=== PATIENT | male | born 1930 | race Caucasian/White ===

== ENCOUNTER → 2016-06-24 | Day surgery (SDC) | payer MEDICARE, BC | END | disposition home or self-care (01) | LOC: SDC 06:01 | DX: C67.2 Malignant neoplasm of lateral wall of bladder (principal); N40.0 Benign prostatic hyperplasia without lower urinary tract symptoms; R31.9 Hematuria, unspecified; N35.9 Urethral stricture, unspecified; N32.3 Diverticulum of bladder; N32.89 Other specified disorders of bladder; N21.0 Calculus in bladder; I10 Essential (primary) hypertension; E11.9 Type 2 diabetes mellitus without complications; Z79.4 Long term (current) use of insulin; Z79.899 Other long term (current) drug therapy; Z88.8 Allergy status to other drugs, medicaments and biological substances; M19.90 Unspecified osteoarthritis, unspecified site | CPT/HCPCS: 84153; J2704; J9280; Q9967 ==

== ENCOUNTER → 2016-07-29 | Day surgery (SDC) | payer MEDICARE, BC | END | disposition home or self-care (01) | LOC: SDC 09:59 | DX: C67.9 Malignant neoplasm of bladder, unspecified (principal); E11.9 Type 2 diabetes mellitus without complications; R03.0 Elevated blood-pressure reading, without diagnosis of hypertension; Z88.8 Allergy status to other drugs, medicaments and biological substances; Z79.899 Other long term (current) drug therapy | CPT/HCPCS: J9031 ==

== ENCOUNTER → 2016-08-05 | Day surgery (SDC) | payer MEDICARE, BC | END | disposition home or self-care (01) | LOC: SDC 10:09 | DX: C67.9 Malignant neoplasm of bladder, unspecified (principal); E11.9 Type 2 diabetes mellitus without complications; R03.0 Elevated blood-pressure reading, without diagnosis of hypertension; Z79.4 Long term (current) use of insulin; Z79.899 Other long term (current) drug therapy | CPT/HCPCS: J9031 ==

== ENCOUNTER → 2016-08-12 | Day surgery (SDC) | payer MEDICARE, BC | END | disposition home or self-care (01) | LOC: SDC 10:23 | DX: C67.9 Malignant neoplasm of bladder, unspecified (principal); E11.9 Type 2 diabetes mellitus without complications; R03.0 Elevated blood-pressure reading, without diagnosis of hypertension; Z79.4 Long term (current) use of insulin; Z79.899 Other long term (current) drug therapy | CPT/HCPCS: J9031 ==

== ENCOUNTER → 2016-08-19 | Day surgery (SDC) | payer MEDICARE, BC | END | disposition home or self-care (01) | LOC: SDC 10:24 | DX: C67.9 Malignant neoplasm of bladder, unspecified (principal); E11.9 Type 2 diabetes mellitus without complications; R03.0 Elevated blood-pressure reading, without diagnosis of hypertension; Z79.4 Long term (current) use of insulin; Z79.899 Other long term (current) drug therapy | CPT/HCPCS: J9031 ==

== ENCOUNTER → 2016-08-29 | Day surgery (SDC) | payer MEDICARE, BC | END | disposition home or self-care (01) | LOC: SDC 08-26 10:30 | DX: C67.9 Malignant neoplasm of bladder, unspecified (principal); E11.9 Type 2 diabetes mellitus without complications; Z88.8 Allergy status to other drugs, medicaments and biological substances; Z79.4 Long term (current) use of insulin; Z79.899 Other long term (current) drug therapy | CPT/HCPCS: J9031 ==

== ENCOUNTER → 2016-09-02 | Day surgery (SDC) | payer MEDICARE, BC | END | disposition home or self-care (01) | LOC: SDC 10:22 | DX: C67.9 Malignant neoplasm of bladder, unspecified (principal); E11.9 Type 2 diabetes mellitus without complications; R03.0 Elevated blood-pressure reading, without diagnosis of hypertension; Z79.4 Long term (current) use of insulin; Z79.899 Other long term (current) drug therapy; Z88.8 Allergy status to other drugs, medicaments and biological substances | CPT/HCPCS: J9031 ==

== ENCOUNTER 2016-09-05 15:49 | Emergency (ER) | payer MEDICARE, BC | END 2016-09-05 20:46 | disposition critical access hospital (66) | LOC: ER 15:49 | DX: N39.0 Urinary tract infection, site not specified (principal); M54.2 Cervicalgia; S00.411A Abrasion of right ear, initial encounter; E11.9 Type 2 diabetes mellitus without complications; I10 Essential (primary) hypertension; C67.9 Malignant neoplasm of bladder, unspecified; Z79.4 Long term (current) use of insulin; Z79.899 Other long term (current) drug therapy; W18.30XA Fall on same level, unspecified, initial encounter | CPT/HCPCS: 36415; 90471; 96361; 96374 ==

== ENCOUNTER 2016-09-05 15:49 | Inpatient (IN) | payer MEDICARE, BC ==
[~2016-09-05] VITALS: Ht 172.7 cm; Wt 77.4 kg
--- NOTE | 2016-09-06 15:32 | NUR ---
1220 - EYE CULTURE OF LEFT EYE SENT/MD ORDER.
--- NOTE | 2016-09-07 16:42 | NUR ---
1530 - PATIENT IN AND OUT CATHED FOR URINE SPECIMEN. 750 ML URINE OUT. UA SENT TO LAB/MD ORDER.
--- NOTE | 2016-09-10 13:58 | NUR ---
1400 PT. PBR 426, 14 F ANCHORED
--- NOTE | 2016-09-10 15:20 | NUR ---
1515 F/C ANCHORED 600 ML CLEAR YELLOW RETURNED
== END 2016-09-10 15:20 | DRG 689 ==
LOC: ER 15:49 → MED 20:46
PROVIDERS: ADMIT Internal Medicine
DX: N39.0 Urinary tract infection, site not specified (principal); G93.40 Encephalopathy, unspecified; F03.90 Unspecified dementia, unspecified severity, without behavioral disturbance, psychotic disturbance, mood disturbance, and anxiety; Z91.81 History of falling; E11.649 Type 2 diabetes mellitus with hypoglycemia without coma; Z79.4 Long term (current) use of insulin; H10.32 Unspecified acute conjunctivitis, left eye; F41.9 Anxiety disorder, unspecified; I10 Essential (primary) hypertension; Z85.51 Personal history of malignant neoplasm of bladder; E78.5 Hyperlipidemia, unspecified; Z79.84 Long term (current) use of oral hypoglycemic drugs; Z79.899 Other long term (current) drug therapy; N40.1 Benign prostatic hyperplasia with lower urinary tract symptoms; R33.8 Other retention of urine
CPT/HCPCS: 36415; 97162-GP; 97166; J0696; J1650